=== PATIENT | female | born 1945 | race Caucasian/White ===

== ENCOUNTER 2018-10-23 12:03 | Emergency (ER) | payer MEDICARE, BC ==
[2018-10-23 12:23] VITALS: BP 133/86; PULSE 61; RESP 18; TEMP 98.2; O2SAT 100
--- NOTE | 2018-10-23 13:40 | ED PDOC ---
Lower Extremity Pain/Injury Time Seen by Provider: 10/23/18 12:23 Chief Complaint (Nursing): Lower Extremity Problem/Injury Chief Complaint (Provider): Lower Extremity Problem/Injury History Per: Patient History/Exam Limitations: no limitations Onset/Duration Of Symptoms: Days (2x days) Current Symptoms Are (Timing): Still Present Severity: Moderate Pain Scale Rating Of: 8 (localized) Additional Complaint(s): 72 year old female with a past medical history of asthma, hypertension, and arthritis (of both knees) presents to the ED with her daughter for an evaluation of left knee pain that started yesterday. Patient states that yesterday she was stepping down from a step stool, when she felt a pop and a crack to the inside aspect of her left knee. She states that the pain has been an 8/10 since then (localized). Patient states she took Etodolac this morning with relief of symptoms. Patient states she takes the medication as needed for her arthritic pain. Otherwise: (-) previous knee injuries, (-) previous knee surgeries, (-) other injuries, (-) other complaints. PMD: Jhon Davila MD - Knee Description Of Injury: Other (left knee: injured white stepping off of a step stool.) Alleviating Factor(s): Other (etodolac) Past Medical History Reviewed: Historical Data, Nursing Documentation, Vital Signs Vital Signs: Last Vital Signs Temp 98.2 F 10/23/18 12:19 Pulse 61 10/23/18 12:19 Resp 18 10/23/18 12:19 BP 133/86 10/23/18 12:19 Pulse Ox 100 10/23/18 12:19 - Medical History PMH: Arthritis (bilateral knees), Asthma, HTN - Surgical History Other surgeries: hysterectomy - Family History Family History: States: No Known Family Hx - Home Medications Home Medications: Ambulatory Orders Medication Instructions Recorded Acetaminophen [Acetaminophen 8 650 mg PO Q8 PRN #21 tablet.er 10/23/18 Hour] RX: Cane 1 each MC DAILY #1 each 10/23/18 - Allergies Allergies/Adverse Reactions: Allergies Allergy/AdvReac Type Severity Reaction Status Date / Time No Known Allergies Allergy Verified 10/23/18 12:19 Review of Systems ROS Statement: Except As Marked, All Systems Reviewed And Found Negative Musculoskeletal: Positive for: Other (left knee pain) Physical Exam - Reviewed Nursing Documentation Reviewed: Yes Vital Signs Reviewed: Yes - Physical Exam Comments: GENERAL APPEARANCE: Patient is awake, alert, oriented x 3, resting comfortably, in no acute distress. NECK: Supple ENT: Mucus membranes moist. Airway patent, (-) stridor. LOWER EXTREMITY: Left knee: (+) tenderness to medial aspect of left knee (+) effusion, (-) ecchymosis, (-) erythema, (-) warmth, ROM intact with pain on flexion. (-) instability on valgus or varus stress, (-) anterior or posterior drawer sign (-) calf tenderness. Remainder of lower extremity nontender with full ROM. Limping in ED, NV intact (+) distal pulses. CHEST AND RESPIRATORY: (-) rales, (-) rhonchi, (-) wheezes; breath sounds equal bilaterally. Respirations even and nonlabored. HEART AND CARDIOVASCULAR: (-) irregularity NEUROLOGIC: (+) distal sensation. - ECG O2 Sat by Pulse Oximetry: 100 (RA) Pulse Ox Interpretation: Normal Medical Decision Making Medical Decision Makin:20 Clinical impression: 72 year old female with acute on chronic knee pain. Initial plan: * Xray knee left 3 views * ultram 50 mg PO (not driving home) * reevaluation 1445 Knee XR reviewed: Date of service: 10/23/2018 PROCEDURE: Left Knee Radiographs. HISTORY: Pain. COMPARISON: None. FINDINGS: BONES: Normal. No fracture. JOINTS: Normal. No osteoarthritis. JOINT EFFUSION: Small suprapatellar bursal effusion noted OTHER FINDINGS: None. IMPRESSION: Small joint effusion. Otherwise unremarkable examination. Aldo bandage ordered and applied by ED staff. NV intact after placement. RICE encouraged. Weight bearing as tolerated. On re-evaluation, patient reports improvement of symptoms. On exam, patient remains AAOx3, in no acute distress. Lungs clear to auscultation, cardiac RRR, repeat neuro exam shows no focal findings. Vitals stable. Lab/Diagnostic results d/w the patient in great detail. Diagnosis of acute on chronic knee pain, knee effusion d/w the patient. Based on history, exam and diagnostic results, plan will be for outpatient follow up with PMD/ortho. Patient instructed to follow-up with pmd / referral provided / the clinic in 1- 2 days without fail. Advised to take medication as prescribed. Return to the emergency room at any time for any new or worsening symptoms. Patient states she fully agrees with and understands discharge instructions. States that she agrees with the plan and disposition. Verbalized and repeated discharge instructions and plan. I have given the patient opportunity to ask any additional questions. Scribe Attestation: Documented by Ayaka Sen, acting as a scribe for Ayaka Ashby Provider Scribe Attestation: All medical record entries made by the Scribe were at my direction and personally dictated by me. I have reviewed the chart and agree that the record accurately reflects my personal performance of the history, physical exam, medical decision making, and the department course for this patient. I have also personally directed, reviewed, and agree with the discharge instructions and disposition. Disposition - Clinical Impression Clinical Impression: Knee pain, Knee effusion, Osteoarthritis - Patient ED Disposition Is Patient to be Admitted: No Counseled Patient/Family Regarding: Studies Performed, Diagnosis, Need For Followup, Rx Given - Disposition Referrals: Tawana Montague MD [Staff Provider] - Disposition: Routine/Home Disposition Time: 14:50 Condition: STABLE Additional Instructions: REST, ICE, ELEVATE EXTREMITY. The emergency medical care you received today was directed at your acute symptoms. If you were prescribed any medication, please fill it and take as directed. It may take several days for your symptoms to resolve. Return to the Emergency Department if your symptoms worsen, do not improve, or if you have any other problems. Please contact your doctor in 2 days for re-evaluation and follow up / or call one of the physicians/clinics you have been referred to that are listed on the Patient Visit Information form that is included in your discharge packet. Bring any paperwork you were given at discharge with you along with any medications you are taking to your follow up visit. Our treatment cannot replace ongoing medical care by a primary care provider (PCP) outside of the emergency department. Prescriptions: Acetaminophen [Acetaminophen 8 Hour] 650 mg PO Q8 PRN #21 tablet.er PRN Reason: Pain, Moderate (4-7) RX: Cane 1 each [facility] DAILY #1 each Instructions: Osteoarthritis, Knee Pain (DC), How to Use an Elastic Bandage Forms: [facility] (Sinhala) Print Language: CONGOLESE - POA Present On Arrival: None
--- NOTE | 2018-10-23 14:37 | RAD ---
Date of service: 10/23/2018 PROCEDURE: Left Knee Radiographs. HISTORY: Pain. COMPARISON: None. FINDINGS: BONES: Normal. No fracture. JOINTS: Normal. No osteoarthritis. JOINT EFFUSION: Small suprapatellar bursal effusion noted OTHER FINDINGS: None. IMPRESSION: Small joint effusion. Otherwise unremarkable examination.
== END 2018-10-23 15:05 | disposition home or self-care (01) ==
LOC: H.ER 12:03
DX: M25.462 Effusion, left knee (principal); M17.12 Unilateral primary osteoarthritis, left knee; G89.29 Other chronic pain; I10 Essential (primary) hypertension